=== PATIENT | female | born 1975 | race American Indian/Alaskan Native ===

== ENCOUNTER 2018-05-26 10:17 | Emergency (ER) | payer BC, OTHER ==
[2018-05-26 10:35] VITALS: BP 149/103
[2018-05-26] MEDS ORDERED: IBUPROFEN PO ONE (12:03)
--- NOTE | 2018-05-26 13:20 | XRay Report ---
LEFT TIBIA/FIBULA: History: Pain. AP and lateral views of the left tibia/fibula demonstrate normal mineralization and contours for this patient's age. No destructive changes are noted and the adjacent soft tissues are normal. IMPRESSION: Normal left tibia/fibula.
== END 2018-05-26 13:33 ==
LOC: ED 10:17
DX: M79.605 Pain in left leg (principal); Z53.21 Procedure and treatment not carried out due to patient leaving prior to being seen by health care provider

== ENCOUNTER 2019-04-03 11:10 | Emergency (ER) | payer BC, OTHER ==
[2019-04-03 11:28] VITALS: BP 151/100
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
== END 2019-04-03 13:30 | disposition home or self-care (01) ==
LOC: ED 11:10
DX: S39.012A Strain of muscle, fascia and tendon of lower back, initial encounter (principal); S16.1XXA Strain of muscle, fascia and tendon at neck level, initial encounter; V89.2XXA Person injured in unspecified motor-vehicle accident, traffic, initial encounter; Y93.89 Activity, other specified; Y92.410 Unspecified street and highway as the place of occurrence of the external cause; Y99.8 Other external cause status
CPT/HCPCS: 72040; 72100; 99282

== ENCOUNTER 2020-04-03 09:12 | Emergency (ER) | payer SELFPAY ==
[2020-04-03] MEDS ORDERED: SODIUM CHLORIDE 0.9% 1000 ML 1,000 ML IV ONE (09:23)
[2020-04-03 09:26] VITALS: BP 130/85
--- NOTE | 2020-04-03 09:37 | Emergency Department Report ---
ED General Adult HPI - General Chief complaint: Weakness Stated complaint: NEAR SYNCOPAL EPISODE Time Seen by Provider: 04/03/20 09:21 Source: patient Mode of arrival: Wheelchair Limitations: No Limitations - History of Present Illness Initial comments: Patient is a 44-year-old female who presents to the emergency department without complaint. Despite triage complaint to the contrary, patient denies syncopal episode or near syncopal episode. 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 Patient notes she has accidentally been taking Metformin instead of Motrin for the past 3 weeks, most recently 4 PM yesterday. Patient denies history of diabetes or hyperglycemia. Patient denies chest pain, denies shortness of breath, denies fever, denies nausea vomiting diarrhea. Patient requesting discharge on arrival. - Related Data Previous Rx's Medication Instructions Recorded Last Taken Type HYDROcodone/APAP 5-325 [[place] 1 each PO Q6HR PRN #15 tablet 10/26/15 Unknown Rx 5/325] Ibuprofen [Motrin] 800 mg PO Q8HR PRN #15 tablet 12/09/15 Unknown Rx Cyclobenzaprine [Flexeril] 10 mg PO TID PRN #15 tablet 01/27/16 Unknown Rx Ibuprofen [Motrin 800 MG tab] 800 mg PO Q8HR PRN #30 tablet 01/27/16 Unknown Rx Ibuprofen [Motrin 600 MG tab] 600 mg PO Q8H PRN #20 tablet 04/03/19 Unknown Rx Methocarbamol [Robaxin] 500 mg PO BID PRN #15 tablet 04/03/19 Unknown Rx Allergies Allergy/AdvReac Type Severity Reaction Status Date / Time No Known Allergies Allergy Verified 05/26/18 10:32 ED Review of Systems ROS: Stated complaint: NEAR SYNCOPAL EPISODE Other details as noted in HPI Comment: All other systems reviewed and negative ED Past Medical Hx - Past Medical History Previous Medical History?: Yes Hx Hypertension: Yes (NON COMPLIANT) Hx Arthritis: Yes Hx Psychiatric Treatment: Yes (anxiety/depression) - Surgical History Additional Surgical History: left foot, Hysteroscopy in 2004, D&C - Social History Smoking Status: Current Some Day Smoker Substance Use Type: None - Medications Home Medications: Home Medications Medication Instructions Recorded Confirmed Last Taken Type HYDROcodone/APAP 5-325 [[place] 1 each PO Q6HR PRN #15 tablet 10/26/15 Unknown Rx 5/325] Ibuprofen [Motrin] 800 mg PO Q8HR PRN #15 tablet 12/09/15 Unknown Rx Cyclobenzaprine [Flexeril] 10 mg PO TID PRN #15 tablet 01/27/16 Unknown Rx Ibuprofen [Motrin 800 MG tab] 800 mg PO Q8HR PRN #30 tablet 01/27/16 Unknown Rx Ibuprofen [Motrin 600 MG tab] 600 mg PO Q8H PRN #20 tablet 04/03/19 Unknown Rx Methocarbamol [Robaxin] 500 mg PO BID PRN #15 tablet 04/03/19 Unknown Rx ED Physical Exam - General Limitations: No Limitations General appearance: alert, in no apparent distress - Head Head exam: Present: atraumatic, normocephalic - Eye Eye exam: Present: normal appearance - ENT ENT exam: Present: mucous membranes moist - Neck Neck exam: Present: normal inspection - Respiratory Respiratory exam: Present: normal lung sounds bilaterally. Absent: respiratory distress - Cardiovascular Cardiovascular Exam: Present: regular rate, normal rhythm. Absent: systolic murmur, diastolic murmur, rubs, gallop - GI/Abdominal GI/Abdominal exam: Present: soft, normal bowel sounds - Extremities Exam Extremities exam: Present: normal inspection - Back Exam Back exam: Present: normal inspection - Neurological Exam Neurological exam: Present: alert, oriented X3 - Psychiatric Psychiatric exam: Present: normal affect, normal mood - Skin Skin exam: Present: warm, dry, intact, normal color. Absent: rash ED Course Vital Signs 04/03/20 09:22 Temperature 97.8 F Pulse Rate 85 Respiratory 16 Rate Blood Pressure 130/85 O2 Sat by Pulse 100 Oximetry - Reevaluation(s) Reevaluation #1: 04/03/20 09:47 Patient refuses IV Reevaluation #2: 04/03/20 10:43 On reevaluation, patient remains in no acute distress, neuro exam nonfocal. Patient ambulatory with a steady gait continue to request discharge ED Medical Decision Making - Lab Data Result diagrams: 04/03/20 09:46 04/03/20 09:46 Vital Signs 04/03/20 09:22 Temperature 97.8 F Pulse Rate 85 Respiratory 16 Rate Blood Pressure 130/85 O2 Sat by Pulse 100 Oximetry Lab Results 04/03/20 04/03/20 04/03/20 Range/Units 09:46 09:46 09:46 WBC 11.2 H (4.5-11.0) K/mm3 RBC 4.16 (3.65-5.03) M/mm3 Hgb 12.4 (10.1-14.3) gm/dl Hct 37.1 (30.3-42.9) % MCV 89 (79-97) fl MCH 30 (28-32) pg MCHC 34 (30-34) % RDW 13.4 (13.2-15.2) % Plt Count 302 (140-440) K/mm3 Lymph % (Auto) 38.9 H (13.4-35.0) % [place] % (Auto) 5.9 (0.0-7.3) % Eos % (Auto) 1.4 (0.0-4.3) % Baso % (Auto) 0.7 (0.0-1.8) % Lymph # (Auto) 4.3 (1.2-5.4) K/mm3 [place] # (Auto) 0.7 (0.0-0.8) K/mm3 Eos # (Auto) 0.2 (0.0-0.4) K/mm3 Baso # (Auto) 0.1 (0.0-0.1) K/mm3 Add Manual Diff Complete Seg Neutrophils % 53.1 (40.0-70.0) % Seg Neutrophils # 5.9 (1.8-7.7) K/mm3 Sodium 137 (137-145) mmol/L Potassium 3.8 (3.6-5.0) mmol/L Chloride 101.0 (98-107) mmol/L Carbon Dioxide 25 (22-30) mmol/L Anion Gap 15 mmol/L BUN 17 (7-17) mg/dL Creatinine 0.8 (0.6-1.2) mg/dL Estimated GFR > 60 ml/min BUN/Creatinine Ratio 21 % Glucose 107 H (65-100) mg/dL Lactic Acid 1.90 (0.7-2.0) mmol/L Calcium 9.4 (8.4-10.2) mg/dL Troponin T < 0.010 (0.00-0.029) ng/mL - EKG Data -: EKG Interpreted by Me (Sinus rhythm at 72, no ST-T changes, normal QRS as interpreted by me) Critical care attestation.: If time is entered above; I have spent that time in minutes in the direct care of this critically ill patient, excluding procedure time. ED Disposition Clinical Impression: Accidental overdose Disposition: DC-01 TO HOME OR SELFCARE Is pt being admited?: No Condition: Stable Instructions: Accidental Drug Poisoning, Adult Referrals: DANIELLE CARRERO MD [Primary Care Provider] - 3-5 Days
[2020-04-03 10:20] LABS: Hematocrit 37.1 % (30.3-42.9); Hemoglobin 12.4 gm/dl (10.1-14.3); Mean Corpuscular HGB Conc 34 % (30-34); Mean Corpuscular Volume 89 fl (79-97); Platelet Count 302 K/mm3 (140-440); Red Blood Count 4.16 M/mm3 (3.65-5.03); Red Cell Distribution Width 13.4 % (13.2-15.2)
[2020-04-03 10:24] LABS: Basophils # (Auto) 0.1 K/mm3 (0.0-0.1); Basophils % (Auto) 0.7 % (0.0-1.8); Eosinophils # (Auto) 0.2 K/mm3 (0.0-0.4); Eosinophils % (Auto) 1.4 % (0.0-4.3); Lymphocytes # (Auto) 4.3 K/mm3 (1.2-5.4); Lymphocytes % (Auto) 38.9 % (13.4-35.0); Monocytes # (Auto) 0.7 K/mm3 (0.0-0.8); Monocytes % (Auto) 5.9 % (0.0-7.3)
[2020-04-03 10:40] LABS: BUN/Creatinine Ratio 21; Blood Urea Nitrogen 17 mg/dL (7-17); Calcium 9.4 mg/dL (8.4-10.2); Hemolysis Index 46
== END 2020-04-03 10:45 | disposition home or self-care (01) ==
LOC: ED 09:12
DX: T38.3X1A Poisoning by insulin and oral hypoglycemic [antidiabetic] drugs, accidental (unintentional), initial encounter (principal); I10 Essential (primary) hypertension; M19.90 Unspecified osteoarthritis, unspecified site; F41.9 Anxiety disorder, unspecified; F32.9 Major depressive disorder, single episode, unspecified; F17.200 Nicotine dependence, unspecified, uncomplicated; Z79.899 Other long term (current) drug therapy; Y92.89 Other specified places as the place of occurrence of the external cause
CPT/HCPCS: 36415; 80048; 82140; 82962; 84484; 85025; 93005; 99283; J7030

== ENCOUNTER 2020-06-04 09:29 | Outpatient (CLI) | payer BC ==
--- NOTE | 2020-06-04 10:59 | Vascular Lab Report ---
DUPLEX DOPPLER LOWER EXTREMITY VEINS, BILATERAL INDICATION / CLINICAL INFORMATION: SWELLING. TECHNIQUE: Duplex doppler imaging was performed through the veins of both lower extremities using venous donavan ambrocio and other maneuvers. COMPARISON: None available. FINDINGS: RIGHT COMMON FEMORAL VEIN: Negative. RIGHT FEMORAL VEIN: Negative. RIGHT POPLITEAL VEIN: Negative. RIGHT CALF VEINS: Negative. LEFT COMMON FEMORAL VEIN: Negative. LEFT FEMORAL VEIN: Negative. LEFT POPLITEAL VEIN: Negative. LEFT CALF VEINS: Negative. ADDITIONAL FINDINGS: 3.4 cm right popliteal fossa collection and 2.6 cm left popliteal fossa collecti on, most compatible with Spencer cysts. IMPRESSION: 1. No sonographic evidence for DVT in either lower extremity. 2. Bilateral Spencer cysts, as above. Signer Name: Wilber Valdivia MD Signed: 06/04/2020 10:54 AM Workstation Name: [id number]
== END 2020-06-04 09:30 | disposition home or self-care (01) ==
LOC: VAS 09:29
PROVIDERS: ATTEND Internal Medicine
DX: M71.22 Synovial cyst of popliteal space [Baker], left knee (principal); M71.21 Synovial cyst of popliteal space [Baker], right knee; M79.89 Other specified soft tissue disorders
CPT/HCPCS: 93970